=== PATIENT | female | born 1940 | race Caucasian/White ===

== ENCOUNTER → 2016-10-24 | Outpatient (REF) | payer MEDICARE ==
[2016-10-24 18:20] LABS: ANION GAP 9 MEQ/L (8-16); BLOOD UREA NITROGEN 17 MG/DL (7-18); CALCIUM LEVEL 8.8 MG/DL (8.8-10.2); CARBON DIOXIDE LEVEL 27 MEQ/L (21-32); CHLORIDE LEVEL 109 MEQ/L (98-107); CREATININE FOR GFR 0.77 MG/DL (0.55-1.02); GLOMERULAR FILTRATION RATE > 60.0 (>39); GLUCOSE, FASTING 66 MG/DL (83-110); POTASSIUM SERUM 4.2 MEQ/L (3.5-5.1); SODIUM LEVEL 145 MEQ/L (136-145); URIC ACID 3.8 MG/DL (2.6-6.0)
== END ==
LOC: M LAB REF 16:28
PROVIDERS: ATTEND Family Medicine
DX: C50.919 Malignant neoplasm of unspecified site of unspecified female breast (principal); M10.09 Idiopathic gout, multiple sites; F32.9 Major depressive disorder, single episode, unspecified

== ENCOUNTER → 2019-01-17 | Outpatient (CLI) | payer MEDICARE ==
[~2019-01-17] MED LIST: GABA-1171 PO; ISOVUE-370 76% 100ML VIAL (Q9967) As Ordered ONE; LEVO50TA5 PO; SIMV40TA2 PO; ZOLO100T PO
--- NOTE | 2019-01-17 17:25 | REP ---
CT LUMBAR SPINE WITHOUT CONTRAST: HISTORY: Spinal stenosis. A diffuse disc bulge with associated osteophyte formation is present at the L1-2 level. There is minimal compression of the thecal sac. The L1 nerves exit the neural foramina without compression. A diffuse disc bulge is present at the L2-3 level. There is hypertrophy of the ligamenta flava and posterior articulating facets. These findings produce minimal central canal stenosis. The L2 nerves exit the neural foramina without compression. A diffuse disc bulge is present at the L3-4 level. There is hypertrophy of the ligamenta flava and posterior articulating facets. These findings produce moderate central canal stenosis. The L3 nerves exit the neural foramina without compression. A diffuse disc is present at the L4-5 level. There is hypertrophy of the ligamenta flava and posterior articulating facets. These findings produce severe central canal stenosis. There is compression of the L4 nerves in the neural foramina. A diffuse disc bulge is present at the L5-S1 level. There is minimal compression of the thecal sac. There is hypertrophy of the posterior articulating facets. There is compression of the L5 nerves in the neural foramina. There is a destructive lesion in the left L5 lamina and spinous process. This is associated with a left posterior paraspinal soft-tissue component. The lumbar intervertebral discs are decreased in height. vacuum phenomenon is present at the L2-3, L4-5, and L5-S1 levels. These findings are consistent with disc degeneration. The vertebral bodies are normal in height. IMPRESSION: 1. Diffuse disc bulge with associated osteophyte formation at the L1-2 level with minimal thecal sac compression. 2. Minimal central canal stenosis at the L2-3 level secondary to disc bulge, ligamentous, and facet hypertrophy. 3. Moderate central canal stenosis at the L3-4 level secondary to disc bulge, ligamentous and facet hypertrophy. 4. Severe central canal stenosis at the L4-5 level secondary to disc bulge, ligamentous and facet hypertrophy. There is compression of the L4 nerves in the neural foramina. 5. Diffuse disc bulge at the L5-S1 level with minimal thecal sac compression. There is compression of the L5 nerves in the neural foramina. 6. There is a destructive lesion in the left L5 lamina and spinous process. This is associated with a left posterior soft tissue paraspinal component at the L4-5 level. The possibility of epidural extension can not be excluded. MR of the lumbar spine is recommended for further evaluation. Electronically Signed by Petros Crane MD 01/18/2019 07:55 A
== END ==
LOC: M RAD 15:09
PROVIDERS: ATTEND Orthopaedic Surgery
DX: M48.061 Spinal stenosis, lumbar region without neurogenic claudication (principal); M25.78 Osteophyte, vertebrae; M51.26 Other intervertebral disc displacement, lumbar region; M51.27 Other intervertebral disc displacement, lumbosacral region
CPT/HCPCS: 72132; Q9967

== ENCOUNTER → 2019-01-25 | Outpatient (CLI) | payer MEDICARE ==
[~2019-01-25] MED LIST changes: -ISOVUE-370 76% 100ML VIAL (Q9967) As Ordered ONE; +LIDOCAINE 1% MDV 20ML VIAL As Ordered ONE
[2019-01-25 13:08] LABS: BASO % 0.4 % (0.0-1.0); EOS # 0.1 10^3/uL (0.0-0.50); EOS % 1.5 % (0.0-3.0); HEMOGLOBIN 12.5 g/dl (12.0-15.5); LYMPH # 1.6 10^3/uL (1.5-4.5); LYMPH % 17.2 % (24.0-44.0); MEAN CORPUSCULAR HEMOGLOBIN 27.7 pg (27.0-33.0); MEAN CORPUSCULAR HGB CONC 32.1 g/dl (32.0-36.5); MEAN CORPUSCULAR VOLUME 86.3 fl (80.0-96.0); MONO # 0.5 10^3/uL (0.0-0.8); MONO % 5.9 % (0.0-5.0); NEUTROPHILS # 6.8 10^3/uL (1.8-7.7); NEUTROPHILS % 74.7 % (36.0-66.0); PLATELET COUNT, AUTOMATED 230 10^3/uL (150-450); RED BLOOD COUNT 4.52 10^6/uL (4.00-5.40); WHITE BLOOD COUNT 9.2 10^3/uL (4.0-10.0)
[2019-01-25 13:29] LABS: ALBUMIN 3.4 GM/DL (3.2-5.2); ALT/SGPT 29 U/L (12-78); BILIRUBIN,TOTAL 0.2 MG/DL (0.2-1.0); BLOOD UREA NITROGEN 17 MG/DL (7-18); C REACTIVE PROTEIN QUANTITATIV 1.23 MG/DL (0.00-0.30); CALCIUM LEVEL 8.8 MG/DL (8.8-10.2); CARBON DIOXIDE LEVEL 31 MEQ/L (21-32); CHLORIDE LEVEL 106 MEQ/L (98-107); CREATININE FOR GFR 0.67 MG/DL (0.55-1.30); GLOMERULAR FILTRATION RATE > 60.0 (>39); GLUCOSE, FASTING 80 MG/DL (70-100); POTASSIUM SERUM 4.2 MEQ/L (3.5-5.1); SODIUM LEVEL 140 MEQ/L (136-145); TOTAL PROTEIN 7.2 GM/DL (6.4-8.2)
[2019-01-25 13:42] LABS: ERYTHROCYTE SEDIMENTATION RATE 62 mm/hr (0-30)
[2019-01-25 14:55] VITALS: BP 135/76
--- NOTE | 2019-01-25 19:26 | REP ---
CT-guided L4/5 facet biopsy The procedure is performed by HARVEY Cooper, under the direct supervision of Dr. Sage. The risks and benefits of the procedure were explained to the patient and informed consent was obtained both orally and written. Directly prior to the start of the procedure, a formal timeout was done in the exam room. The L4/5 facet was localized using CT guidance. Skin was prepped and draped in the usual sterile fashion. 4 ml of 1% lidocaine was used as a local anesthetic. Using CT guidance a 19/20 gauge coaxial needle biopsy system was inserted and advanced into the area of interest. 4 core biopsy samples were obtained as well as approximately 0.5 ml of bloody fluid, and sent to the lab. The patient tolerated the procedure well and there were no immediate complications. After the appropriate monitored convalescence the patient was discharged home from the department. Reviewed by HARVEY Barros 01/25/2019 02:02 P Electronically Signed by Jamil Sage MD 01/25/2019 07:16 P
[2019-01-31 00:06] LABS: BLASTOMYCES ANTIBODY LEVEL Negative (Neg:<1:1); HISTOPLASMOSIS ANTIBODY Negative (Neg:<1:1)
== END ==
LOC: M IRPRO 11:36
PROVIDERS: ATTEND Orthopaedic Surgery
DX: M46.46 Discitis, unspecified, lumbar region (principal); M48.061 Spinal stenosis, lumbar region without neurogenic claudication

== ENCOUNTER → 2019-02-28 | Outpatient (REF) | payer MEDICARE ==
[~2019-02-28] MED LIST changes: -LIDOCAINE 1% MDV 20ML VIAL As Ordered ONE
== END ==
LOC: M SFHCPLAZ 11:38
PROVIDERS: ATTEND Internal Medicine Infectious Disease
DX: A49.01 Methicillin susceptible Staphylococcus aureus infection, unspecified site (principal); Z53.8 Procedure and treatment not carried out for other reasons

== ENCOUNTER → 2020-02-27 | Outpatient (CLI) | payer MEDICARE ==
[~2020-02-27] MED LIST changes: +ALLO100T; +ROSU20TA5; -SIMV40TA2 PO; +SIMV40TA20 PO; +VALA1TAB5
--- NOTE | 2020-03-15 07:52 | REPPI ---
LUMBOSACRAL SPINE SERIES CLINICAL: Back pain. TECHNIQUE: AP, lateral, bilateral oblique, and coned down views of the lumbosacral spine. FINDINGS: Straightening of normal lordosis is nonspecific. Advanced multilevel degenerative changes include osteophytosis, endplate sclerosis, facet arthropathy, and disc space narrowing. Findings most pronounced at L4-5 and L5- S1. No acute fracture/compression injury or subluxation appreciated. IMPRESSION: Advanced multilevel degenerative changes primarily involving L4-5 and L5-S1. MTDD
--- NOTE | 2020-03-15 07:53 | REPPI ---
CHEST X-RAY CLINICAL: Chest pain. Back pain. TECHNIQUE: PA and lateral. FINDINGS: Mediastinum and cardiac silhouette are normal. Lung cordoba clear. No consolidation, effusion, or pneumothorax. Skeletal structures demonstrate age- related osteopenia and degenerative changes. IMPRESSION: No acute cardiopulmonary process or focal consolidation. MTDD
== END ==
LOC: M PLAIMG 11:01
PROVIDERS: ATTEND Internal Medicine Infectious Disease
DX: M85.88 Other specified disorders of bone density and structure, other site (principal); M51.36 Other intervertebral disc degeneration, lumbar region; M51.37 Other intervertebral disc degeneration, lumbosacral region; R91.8 Other nonspecific abnormal finding of lung field; M00.9 Pyogenic arthritis, unspecified; R19.7 Diarrhea, unspecified
CPT/HCPCS: 71046; 72110; 87177; 87507; G0463

== ENCOUNTER → 2020-03-14 | Outpatient (CLI) | payer MEDICARE ==
--- NOTE | 2020-03-27 09:52 | REP ---
BILATERAL MAMMOGRAPHY WITH 3D TOMOSYNTHESIS, DIAGNOSTIC MAMMOGRAM LEFT BREAST AND LEFT BREAST ULTRASOUND HISTORY: Left breast cancer age 68 with radiation therapy. Benign biopsy at the surgery site 07/2018, results were a cyst. Current palpable lump left breast at site of surgery outer posterior left breast with pain. This is at the site of the prior biopsy 07/2018. The patient does not experience pain today. Interpretation is somewhat delayed waiting prior MR mammography exam 08/05/2018 from [place], [place]. TECHNIQUE: MLO and CC views of both breasts performed with 3D tomosynthesis. Additional compression views are performed of the posterior outer left breast at the site of the reported palpable abnormality near the site of prior surgery. FINDINGS: There is mild scattered fibroglandular tissue again seen bilaterally. Volpara breast density is B. There is stable postsurgical architectural distortion far posteriorly in the outer left breast, which appears stable. No new mass is seen mammographically and there are no suspicious clusters of microcalcifications. There are multiple metallic clips again seen in the left axillary region and in the posterolateral left axillary tail region, where there is postsurgical architectural distortion. Just anterior to that site, the palpable lump is marked on the skin. There is no new mass at that location. Real-time sonographic evaluation of the left breast is performed at the site of the reported palpable lump. There is no underlying cystic or solid mass. IMPRESSION: ACR 2 benign. Stable postsurgical changes posterolateral left breast. No new mass or clustered microcalcifications. There is no mammographic or sonographic abnormality seen at the site of the reported palpable lump in the outer posterior left breast. Clinical correlation and follow-up recommended. Recommend follow-up mammogram in one year. This mammogram was interpreted with the aid of an FDA approved computer-aided detection system. The patient states her last clinical breast exam was over one year ago. Patient letter: 2. CORBIN
== END ==
LOC: M WHC 08:04
PROVIDERS: ATTEND Family Medicine
DX: N63.20 Unspecified lump in the left breast, unspecified quadrant (principal); Z85.3 Personal history of malignant neoplasm of breast; Z92.3 Personal history of irradiation
CPT/HCPCS: 76642; 77066; G0279

== ENCOUNTER → 2020-04-06 | Outpatient (CLI) | payer MEDICARE | LOC: M LABSMTC 12:01 | PROVIDERS: ATTEND Anesthesiology | DX: Z01.812 Encounter for preprocedural laboratory examination (principal); Z20.828 Contact with and (suspected) exposure to other viral communicable diseases | CPT/HCPCS: C9803; U0003 ==

== ENCOUNTER 2020-04-11 06:41 | Day surgery (SDC) | payer MEDICARE ==
[~2020-04-11] VITALS: Ht 165.1 cm; Wt 75.3 kg
[2020-04-11] MEDS ORDERED: NS 1,000 ML IV ONE (07:00)
[2020-04-11] MEDS ORDERED: LIDOCAINE 2% 100MG/5ML SDV (FOR ANES.) As Ordered ONE (07:53)
[2020-04-11] MEDS ORDERED: propofoL 200 MG/20 ML VIAL As Ordered ONE (07:53)
--- NOTE | 2020-04-11 08:01 | ROOR ---
Patient Name: Zulema Mirza Procedure Date: 04/11/2020 7:27 AM Date of : 1940 Age: 80 Room: [facility] Gender: Female Note Status: Finalized Procedure: Total Colonoscopy to Cecum + Bx.+ Cold Snare Polypectomy Indications: Clinically significant diarrhea of unexplained origin Providers: Nick Hu MD Referring MD: Lidia Smyth DO Requesting Provider: Medicines: Monitored Anesthesia Care Complications: No immediate complications. Procedure: Pre-Anesthesia Assessment: - The heart rate, respiratory rate, oxygen saturations, blood pressure, adequacy of pulmonary ventilation, and response to care were monitored throughout the procedure. The Colonoscope was introduced through the anus and advanced to the cecum, identified by appendiceal orifice and ileocecal valve. The colonoscopy was performed without difficulty. The patient tolerated the procedure well. The quality of the bowel preparation was excellent. Findings: The perianal and digital rectal examinations were normal. Non-bleeding internal hemorrhoids were found during retroflexion. The hemorrhoids were small and Grade I (internal hemorrhoids that do not prolapse). Two sessile polyps were found in the hepatic flexure. The polyps were diminutive in size. These polyps were removed with a cold snare. Resection and retrieval were complete. Biopsies for histology were taken with a cold forceps from the ascending colon, transverse colon, descending colon and rectosigmoid colon for evaluation of microscopic colitis. The exam was otherwise without abnormality on direct and retroflexion views. Impression: - Non-bleeding internal hemorrhoids. - Two diminutive polyps at the hepatic flexure, removed with a cold snare. Resected and retrieved. - The examination was otherwise normal on direct and retroflexion views. - Biopsies were taken with a cold forceps from the ascending colon, transverse colon, descending colon and rectosigmoid colon for evaluation of microscopic colitis. - The exam was otherwise normal to the cecum. Recommendation: - Patient has a contact number available for emergencies. The signs and symptoms of potential delayed complications were discussed with the patient. Return to normal activities tomorrow. Written discharge instructions were provided to the patient. - High fiber diet. - Discharge patient to home. - Continue present medications. - Await pathology results. - Telephone GI clinic for pathology results in 1 week. - Repeat colonoscopy for surveillance based on pathology results. - Return to referring physician. - The findings and recommendations were discussed with the patient. Nick Hu MD Nick Hu MD 04/11/2020 8:00:18 AM Electronically signed by Nick Hu MD Number of Addenda: 0 Note Initiated On: 04/11/2020 7:27 AM Estimated Blood Loss: Estimated blood loss: none.
[2020-04-11 08:33] VITALS: BP 125/65
== END 2020-04-11 08:35 | disposition home or self-care (01) ==
LOC: M OPP 06:41
PROVIDERS: ATTEND Internal Medicine Gastroenterology
DX: D12.3 Benign neoplasm of transverse colon (principal); K64.0 First degree hemorrhoids; K52.839 Microscopic colitis, unspecified; R19.7 Diarrhea, unspecified; Z79.899 Other long term (current) drug therapy; Z88.0 Allergy status to penicillin; Z88.2 Allergy status to sulfonamides; Z87.891 Personal history of nicotine dependence; Z85.3 Personal history of malignant neoplasm of breast; Z92.3 Personal history of irradiation

== ENCOUNTER 2020-11-04 09:11 | Emergency (ER) | payer MEDICARE ==
[~2020-11-04] VITALS: Ht 165.1 cm; Wt 77.6 kg
[2020-11-04] MEDS ORDERED: PRED10TA2 PO (09:28)
[2020-11-04] MEDS ORDERED: AZIT-12 PO (09:28)
[2020-11-04 11:02] LABS: BASO % 0.2 % (0.0-1.0); EOS # 0.1 10^3/uL (0.0-0.5); EOS % 0.7 % (0.0-3.0); HEMATOCRIT 44.5 % (36.0-47.0); HEMOGLOBIN 14.7 g/dl (12.0-15.5); LYMPH # 1.4 10^3/uL (1.5-5.0); MEAN CORPUSCULAR HEMOGLOBIN 30.6 pg (27.0-33.0); MEAN CORPUSCULAR VOLUME 92.7 fl (80.0-96.0); MONO # 0.6 10^3/uL (0.0-0.8); MONO % 5.6 % (2.0-8.0); NEUTROPHILS # 8.1 10^3/uL (1.5-8.5); NEUTROPHILS % 79.3 % (36.0-66.0); PLATELET COUNT, AUTOMATED 160 10^3/uL (150-450); WHITE BLOOD COUNT 10.3 10^3/uL (4.0-10.0)
[2020-11-04 11:33] LABS: ERYTHROCYTE SEDIMENTATION RATE 11 mm/hr (0-30)
[2020-11-04] MEDS ORDERED: KETOROLAC 30 MG/ML 1ML VIAL IV ONE (11:50)
[2020-11-04] MEDS ORDERED: NS 1,000 ML IV ONE (11:50)
[2020-11-04] MEDS ORDERED: ISOVUE-370 76% 100ML VIAL As Ordered ONE (12:01)
--- NOTE | 2020-11-04 12:37 | REP ---
INDICATION: right hip-recent dental work, joint pain r/o infection. COMPARISON: Comparison CT study of the lumbar spine January 17, 2019.. TECHNIQUE: Helical scanning is acquired and 3 mm axial images are re-formatted. Coronal and sagittal MPR images of the pelvis are included. 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 There are degenerative spondylosis changes in the lumbar spine. On bone window settings, there is discogenic spurring along the left lateral contour of the L5 3 4 and L4-5 disc levels. Diffuse disc again experience seen anterior aspect of L5-S1. No bony destructive lesion is seen in the pelvis or sacrum. There is chronic sclerosis along the right SI joint and mild SI joint spurring is seen bilaterally. These findings are unchanged. Osteoarthritic facet hypertrophy is noted in the lower lumbar spine also unchanged. There is mild bilateral femoroacetabular spurring. There is some chondrocalcinosis at the right hip. Mild spurring is seen at the symphysis pubis. Presacral soft tissues are unremarkable. No uterine or ovarian abnormality is seen. The urinary bladder is unremarkable. No pelvic mass or adenopathy is seen. No perineal mass is seen. No abdominal wall defect is observed. A normal appendix is noted in the right lower quadrant. IMPRESSION: Degenerative spondylosis changes in the lumbar spine. Old sclerosis and spurring the SI joints. Mild osteoarthritis of the hips bilaterally. No acute abnormality. <Electronically signed by Sundar Sage > 11/04/20 [id number]
--- NOTE | 2020-11-04 13:04 | REP ---
INDICATION: with contrast--hx of spinal abscess. COMPARISON: Comparison lumbar spine CT study is from January 17, 2019.. TECHNIQUE: 100 cc of Isovue 370 is administered. Helical scanning is acquired and 4 mm axial images re-formatted. Coronal and sagittal MPR images are included. FINDINGS: Lumbar vertebral body heights are preserved. Alignment is normal. There is diffuse degenerative disc disease. No fracture or collapse is seen. There is no evidence of spondylolysis or spondylolisthesis. There is sclerosis on the iliac side of the sacroiliac joints bilaterally, right more so than left unchanged from the January 17, 2019 study. SI joints are intact. No evidence of erosive change or adjacent soft tissue edema. There is no CT evidence to suggest epidural or perispinal abscess. There is diffuse degenerative disc disease. At T12-L1 there is anterior discogenic spurring and central disc bulging. At L1-L2, axial and sagittal images demonstrate diffuse disc bulging. No foraminal narrowing is seen. At L2-L3, there is a vacuum phenomenon in the degenerated disc. There is central canal stenosis and at the L2-3 level due to diffuse disc bulging, developmentally short pedicles, and mild ligamentum flavum hypertrophy. This is unchanged. At L3-4, there is a diffuse disc bulging noted. This appears somewhat more prominent than on the prior study. Central canal stenosis is seen due to diffuse disc bulging, developmentally short pedicles and mild ligamentum flavum hypertrophy. No bony foraminal encroachment is seen. At L4-5, there is mild central canal stenosis due to diffuse disc bulging and some posterior osteophytic ridging. Ligamentum flavum and mild facet hypertrophy contribute to the central canal stenosis at L4-5 as well. The central canal stenosis at L4-5 is less prominent than it was at the time of the January 17, 2019 study. The left L4-5 facet inflammatory changes present at January 2019 have resolved. At L5-S1 there is vacuum phenomenon in the generated disc. There is osteoarthritic facet hypertrophy and mild ligamentum flavum hypertrophy. No bony foraminal narrowing. IMPRESSION: There is no evidence of epidural or perispinal abscess. Degenerative spondylosis with multilevel spinal stenosis L2-3 through L4-5. Improvement is noted at L4-5 relative to the January 17, 2019 prior scan. <Electronically signed by Sundar Sage > 11/04/20 1300
[2020-11-04 13:43] VITALS: BP 144/60
== END 2020-11-04 13:45 | disposition home or self-care (01) ==
LOC: M ED 09:11
DX: M47.816 Spondylosis without myelopathy or radiculopathy, lumbar region (principal); M48.061 Spinal stenosis, lumbar region without neurogenic claudication; M51.25 Other intervertebral disc displacement, thoracolumbar region; M51.26 Other intervertebral disc displacement, lumbar region; M16.0 Bilateral primary osteoarthritis of hip; Z86.14 Personal history of Methicillin resistant Staphylococcus aureus infection; Z88.0 Allergy status to penicillin; Z88.2 Allergy status to sulfonamides; Z79.899 Other long term (current) drug therapy
CPT/HCPCS: 36415; 72132; 72193; 80047; 83605; 85025; 85652; 86140; 87040; 96361; 96374; 99284; J1885; Q9967

== ENCOUNTER → 2021-03-18 | Outpatient (CLI) | payer MEDICARE ==
[~2021-03-18] MED LIST changes: +AZIT-12 PO; +PRED10TA2 PO
--- NOTE | 2021-03-18 09:18 | REPMRS ---
Patient History The patient states she had a clinical breast exam in February 2021. Patient is postmenopausal, has history of breast cancer at age 68, and had previous chest radiation therapy at age 68. Family history of breast cancer at age 70 in sister, breast cancer at age 65 in maternal half sister. Patient states no breast complaints today. Patient has signed MRS History Sheet. Digital Woman Screen Mammo: March 18, 2021 - Exam #: [id number] Bilateral CC and MLO view(s) were taken. Technologist: Jojo Keith Technologist Prior study comparison: March 14, 2020, diagnostic bilateral mammo performed at [facility] and [facility]. August 05, 2018, left breast diagnostic unilateral mammo, performed at Outside Facility. FINDINGS: There are scattered fibroglandular densities. The Volpara volumetric breast density category is:B. There are stable post treatment changes in the left breast. There has been no change in the appearance of the mammogram from the prior studies. There is a mild amount of scattered fibroglandular density which is fairly symmetric. There is no interval development of dominant mass, architectural distortion, or grouped microcalcification suggestive of malignancy. 3-D tomosynthesis shows no additional findings. Assessment: BI-RADS/ACR category 2 mammogram. Benign Findings. Recommendation Routine screening mammogram of both breasts in 1 year (for women over age 40). This mammogram was interpreted with the aid of an FDA-approved computer-aided dectection system. Electronically Signed By: Sundar Sage MD 03/18/21 0917
== END ==
LOC: M WHC 08:34
PROVIDERS: ATTEND Family Medicine
DX: Z12.31 Encounter for screening mammogram for malignant neoplasm of breast (principal)

== ENCOUNTER → 2021-11-28 | Outpatient (REF) | payer MEDICARE, OTHER, SELFPAY | LOC: M SFHCCLAY 15:52 | PROVIDERS: ATTEND Family Medicine | DX: R30.0 Dysuria (principal); R19.5 Other fecal abnormalities ==

== ENCOUNTER → 2021-11-29 | Outpatient (REF) | payer OTHER | LOC: M SFHCCLAY 09:27 | PROVIDERS: ATTEND Family Medicine | DX: Z53.9 Procedure and treatment not carried out, unspecified reason (principal) ==

== ENCOUNTER → 2022-01-21 | Outpatient (REF) | payer MEDICARE ==
[2022-01-21 11:20] LABS: HEMATOCRIT 44.6 % (36.0-47.0); HEMOGLOBIN 15.1 g/dl (12.0-15.5); MEAN CORPUSCULAR HEMOGLOBIN 30.6 pg (27.0-33.0); MEAN CORPUSCULAR HGB CONC 33.9 g/dl (32.0-36.5); MEAN CORPUSCULAR VOLUME 90.5 fl (80.0-96.0); PLATELET COUNT, AUTOMATED 165 10^3/uL (150-450); RED BLOOD COUNT 4.93 10^6/uL (4.00-5.40); WHITE BLOOD COUNT 6.8 10^3/uL (4.0-10.0)
[2022-01-21 12:06] LABS: ALBUMIN 3.8 GM/DL (3.2-5.2); ALT/SGPT 32 U/L (12-78); BILIRUBIN,TOTAL 0.3 MG/DL (0.2-1.0); BLOOD UREA NITROGEN 20 MG/DL (7-18); CARBON DIOXIDE LEVEL 28 MEQ/L (21-32); CHLORIDE LEVEL 110 MEQ/L (98-107); CREATININE FOR GFR 0.83 MG/DL (0.55-1.30); FREE T4 0.73 NG/DL (0.76-1.46); GLOMERULAR FILTRATION RATE > 60.0 (>39); GLUCOSE, FASTING 89 MG/DL (70-100); SODIUM LEVEL 145 MEQ/L (136-145); TOTAL PROTEIN 7.1 GM/DL (6.4-8.2)
== END ==
LOC: M SFHCCLAY 08:00
PROVIDERS: ATTEND Family Medicine
DX: M35.1 Other overlap syndromes (principal); E03.9 Hypothyroidism, unspecified; Z12.31 Encounter for screening mammogram for malignant neoplasm of breast

== ENCOUNTER 2022-02-09 20:35 | Emergency (ER) | payer MEDICARE ==
[~2022-02-09] VITALS: Ht 167.6 cm; Wt 72.7 kg
[~2022-02-09 20:35] MED LIST changes: -ALLO100T; +ALLO100T PO
[2022-02-09 22:05] LABS: BASO % 0.1 % (0.0-1.0); HEMATOCRIT 40.1 % (36.0-47.0); HEMOGLOBIN 13.7 g/dl (12.0-15.5); LYMPH # 0.5 10^3/uL (1.5-5.0); LYMPH % 3.6 % (24.0-44.0); MEAN CORPUSCULAR HEMOGLOBIN 30.2 pg (27.0-33.0); MEAN CORPUSCULAR HGB CONC 34.2 g/dl (32.0-36.5); MEAN CORPUSCULAR VOLUME 88.3 fl (80.0-96.0); MONO # 0.7 10^3/uL (0.0-0.8); MONO % 5.6 % (2.0-8.0); NEUTROPHILS # 11.5 10^3/uL (1.5-8.5); NEUTROPHILS % 90.3 % (36.0-66.0); PLATELET COUNT, AUTOMATED 104 10^3/uL (150-450); RED BLOOD COUNT 4.54 10^6/uL (4.00-5.40); WHITE BLOOD COUNT 12.8 10^3/uL (4.0-10.0)
[2022-02-09] MEDS ORDERED: NS 1,000 ML IV ONE (22:10)
[2022-02-09] MEDS ORDERED: ACETAMINOPHEN 500 MG TAB PO ONE (22:10)
[2022-02-09] MEDS ORDERED: ONDANSETRON 4MG 2ML VIAL IV ONE (22:10)
[2022-02-09 22:18] LABS: D-DIMER QUANT 1490.36 ng/ml (<500)
[2022-02-09 22:42] LABS: ALBUMIN 3.6 GM/DL (3.2-5.2); BILIRUBIN,DIRECT 0.2 MG/DL (0.0-0.2); BILIRUBIN,TOTAL 0.7 MG/DL (0.2-1.0); FREE THYROXINE INDEX 3.5 % (1.3-4.8); THYROID STIMULATING HORMONE 1.65 uIU/ML (0.358-3.740); THYROXINE (T4) 10.3 UG/DL (4.5-12.0); TOTAL PROTEIN 7.1 GM/DL (6.4-8.2)
[2022-02-09 23:05] LABS: PROTHROMBIN TIME 13.6 SECONDS (12.7-14.5)
[2022-02-09 23:06] LABS: PARTIAL THROMBOPLASTIN TIME 44.1 SECONDS (25.9-37.0)
[2022-02-10 00:35] LABS: CK-MB VALUE MASS < 1.0 NG/ML (<3.6); CPK CREATINE PHOSPHOKINASE 46 U/L (26-192); MB/CK RELATIVE INDEX 2.17 (< OR =4)
[2022-02-10] MEDS ORDERED: traMADol 50 MG TAB PO ONE (00:35)
[2022-02-10] MEDS ORDERED: POTASSIUM CHLORIDE 10MEQ SR TABLET PO ONE (00:35)
[2022-02-10] MEDS ORDERED: ISOVUE-370 76% 100ML VIAL As Ordered ONE (00:40)
[2022-02-10 01:55] LABS: CK-MB VALUE MASS < 1.0 NG/ML (<3.6); CPK CREATINE PHOSPHOKINASE 50 U/L (26-192)
[2022-02-10] MEDS ORDERED: ONDA4TAB6 PO (02:04)
[2022-02-10] MEDS ORDERED: TRAM50TA2 PO (02:04)
[2022-02-10 02:10] VITALS: BP 111/83
[2022-02-10] MEDS ORDERED: ONDANSETRON 4MG ORAL DISINTEGRATING TAB PO ONE (02:10)
[2022-02-11] MEDS ORDERED: GABA-1171 PO (10:24)
[2022-02-11] MEDS ORDERED: ONDA-83 PO (18:53)
[2022-02-11] MEDS ORDERED: MACR100C43 PO (18:53)
== END 2022-02-10 02:18 | disposition home or self-care (01) ==
LOC: M ED 20:35
DX: U07.1 COVID-19 (principal); R11.2 Nausea with vomiting, unspecified; R19.7 Diarrhea, unspecified; E87.6 Hypokalemia; E03.9 Hypothyroidism, unspecified; K44.9 Diaphragmatic hernia without obstruction or gangrene; G62.9 Polyneuropathy, unspecified; Z85.3 Personal history of malignant neoplasm of breast; F17.200 Nicotine dependence, unspecified, uncomplicated; Z88.0 Allergy status to penicillin; Z88.2 Allergy status to sulfonamides; Z79.890 Hormone replacement therapy; Z79.899 Other long term (current) drug therapy
CPT/HCPCS: 70450; 71275; 73502; 80047; 80076; 82550; 82553; 83605; 83690; 84436; 84443; 84479; 84484; 85025; 85379; 85610; 85730; 87040; 87077; 87186; 93005; 96361; 96374; 99284; J2405; Q9967

== ENCOUNTER 2022-02-11 10:15 | Emergency (ER) | payer MEDICARE ==
[~2022-02-11] VITALS: Ht 167.6 cm; Wt 72.7 kg
[~2022-02-11 10:15] MED LIST changes: +ONDA4TAB6 PO; +TRAM50TA2 PO
[2022-02-11] MEDS ORDERED: GABA-1171 PO (10:24)
[2022-02-11 11:47] LABS: BASO % 0.1 % (0.0-1.0); HEMATOCRIT 35.5 % (36.0-47.0); HEMOGLOBIN 12.1 g/dl (12.0-15.5); LYMPH # 0.3 10^3/uL (1.5-5.0); LYMPH % 2.7 % (24.0-44.0); MEAN CORPUSCULAR HEMOGLOBIN 30.2 pg (27.0-33.0); MEAN CORPUSCULAR HGB CONC 34.1 g/dl (32.0-36.5); MEAN CORPUSCULAR VOLUME 88.5 fl (80.0-96.0); MONO # 0.5 10^3/uL (0.0-0.8); MONO % 4.2 % (2.0-8.0); NEUTROPHILS # 10.1 10^3/uL (1.5-8.5); NEUTROPHILS % 92.3 % (36.0-66.0); PLATELET COUNT, AUTOMATED 114 10^3/uL (150-450); RED BLOOD COUNT 4.01 10^6/uL (4.00-5.40); WHITE BLOOD COUNT 10.9 10^3/uL (4.0-10.0)
[2022-02-11 12:20] LABS: BLOOD UREA NITROGEN 16 MG/DL (7-18); CALCIUM LEVEL 8.2 MG/DL (8.8-10.2); CARBON DIOXIDE LEVEL 25 MEQ/L (21-32); CHLORIDE LEVEL 100 MEQ/L (98-107); GLOMERULAR FILTRATION RATE > 60.0 (>32); GLUCOSE, FASTING 107 MG/DL (70-100); POTASSIUM SERUM 3.7 MEQ/L (3.5-5.1); SODIUM LEVEL 132 MEQ/L (136-145)
[2022-02-11] MEDS ORDERED: ONDANSETRON 4MG 2ML VIAL IV ONE (15:50)
[2022-02-11] MEDS ORDERED: FAMOTIDINE 20MG/2ML VIAL IVP ONE (15:50)
[2022-02-11] MEDS ORDERED: KETOROLAC 30 MG/ML 1ML VIAL IV ONE (15:50)
[2022-02-11] MEDS ORDERED: NS 1,000 ML IV ONE (15:50)
[2022-02-11 17:03] LABS: ALBUMIN 2.8 GM/DL (3.2-5.2); ALT/SGPT 34 U/L (12-78); BILIRUBIN,DIRECT 0.4 MG/DL (0.0-0.2); BILIRUBIN,TOTAL 0.8 MG/DL (0.2-1.0); LIPASE 115 U/L (73-393); TOTAL PROTEIN 6.5 GM/DL (6.4-8.2)
[2022-02-11 17:03] LABS: CK-MB VALUE MASS 4.2 NG/ML (<3.6); MB/CK RELATIVE INDEX 2.53 (< OR =4)
[2022-02-11 18:27] VITALS: BP 139/71
[2022-02-11 18:43] LABS: BACTERIA, URINE LARGE AMOUNT; HYALINE CAST, URINE NONE SEEN /lpf (0-1); RBC, URINE NONE SEEN /hpf (0-3); SQUAMOUS EPITHELIAL CELL URINE SMALL AMOUNT /hpf (SMALL AMT)
[2022-02-11] MEDS ORDERED: MACR100C43 PO (18:53)
[2022-02-11] MEDS ORDERED: ONDA-83 PO (18:53)
== END 2022-02-11 19:04 | disposition home or self-care (01) ==
LOC: M ED 10:15
DX: B34.9 Viral infection, unspecified (principal); N39.0 Urinary tract infection, site not specified; R11.2 Nausea with vomiting, unspecified; I51.9 Heart disease, unspecified; E78.5 Hyperlipidemia, unspecified; M81.0 Age-related osteoporosis without current pathological fracture; M54.50 Low back pain, unspecified; Z88.0 Allergy status to penicillin; Z88.2 Allergy status to sulfonamides; Z85.3 Personal history of malignant neoplasm of breast; Z92.3 Personal history of irradiation; Z79.899 Other long term (current) drug therapy; Z79.83 Long term (current) use of bisphosphonates
CPT/HCPCS: 74021; 80048; 80076; 81000; 81015; 82550; 82553; 83690; 84484; 85025; 87088; 87186; 96361; 96374; 99284; J1885; J2405

== ENCOUNTER 2022-02-14 15:12 | Inpatient (IN) | payer MEDICARE ==
[~2022-02-14] VITALS: Ht 167.6 cm; Wt 82.3 kg
[~2022-02-14 15:12] MED LIST changes: +MACR100C43 PO; +ONDA-83 PO
[2022-02-14 16:07] LABS: HEMATOCRIT 31.5 % (36.0-47.0); MEAN CORPUSCULAR HEMOGLOBIN 30.7 pg (27.0-33.0); MEAN CORPUSCULAR HGB CONC 34.9 g/dl (32.0-36.5); PLATELET COUNT, AUTOMATED 182 10^3/uL (150-450); RED BLOOD COUNT 3.58 10^6/uL (4.00-5.40); WHITE BLOOD COUNT 13.3 10^3/uL (4.0-10.0)
[2022-02-14 16:20] LABS: INR 1.26; PROTHROMBIN TIME 16.2 SECONDS (12.7-14.5)
[2022-02-14 16:21] LABS: PARTIAL THROMBOPLASTIN TIME 39.2 SECONDS (25.9-37.0)
[2022-02-14 16:28] LABS: EOSINOPHILS 1 % (0-3); LYMPHOCYTES 8 % (16-44); MONOCYTES 2 % (0-5); NEUTROPHILS 86 % (28-66); PLATELET ESTIMATE NORMAL (NORMAL)
[2022-02-14] MEDS ORDERED: MORPHINE 4 MG/ML 1ML VIAL/SYRINGE IV ONE ×2 (16:35→22:30)
[2022-02-14 16:48] LABS: CK-MB VALUE MASS 5.5 NG/ML (<3.6); MB/CK RELATIVE INDEX 1.63 (< OR =4)
[2022-02-14 16:54] LABS: ALBUMIN 2.1 GM/DL (3.2-5.2); ALT/SGPT 79 U/L (12-78); AMYLASE 45 U/L (25-115); BILIRUBIN,DIRECT 0.5 MG/DL (0.0-0.2); BILIRUBIN,TOTAL 0.8 MG/DL (0.2-1.0); BLOOD UREA NITROGEN 13 MG/DL (7-18); CALCIUM LEVEL 8.5 MG/DL (8.8-10.2); CARBON DIOXIDE LEVEL 23 MEQ/L (21-32); CHLORIDE LEVEL 96 MEQ/L (98-107); CREATININE FOR GFR 0.45 MG/DL (0.55-1.30); GLOMERULAR FILTRATION RATE > 60.0 (>32); GLUCOSE, FASTING 84 MG/DL (70-100); POTASSIUM SERUM 3.2 MEQ/L (3.5-5.1); SODIUM LEVEL 130 MEQ/L (136-145); TOTAL PROTEIN 5.5 GM/DL (6.4-8.2)
[2022-02-14] MEDS ORDERED: ISOVUE-370 76% 100ML VIAL As Ordered ONE (16:59)
[2022-02-14] MEDS ORDERED: NS 1,000 ML IV ONE (17:25)
[2022-02-14] MEDS ORDERED: VANCOMYCIN HCL 1,000 MG in IV FLUID PLACE HOLDER 1 EA IV ONE (17:25)
[2022-02-14] MEDS ORDERED: POTASSIUM CHLORIDE 10MEQ SR TABLET PO ONE (17:25)
[2022-02-14] MEDS ORDERED: VANCOMYCIN HCL 750 MG, VIAL MATE ADAPTER 1 EACH in D5W 250 ML IV ONE ×2 (18:00→19:00)
[2022-02-14] MEDS ORDERED: NS 1,000 ML IV SCH (20:15)
[2022-02-14 20:45] LABS: APPEARANCE, URINE MANUAL CLEAR (CLEAR); COLOR, URINE MANUAL YELLOW (YELLOW)
[2022-02-14 20:46] LABS: BILIRUBIN, URINE MANUAL NEGATIVE (NEGATIVE); BLOOD URINE MANUAL POSITIVE (NEGATIVE); GLUCOSE, URINE (UA) MANUAL NEGATIVE (NEGATIVE); KETONE, URINE MANUAL 2+ mg/dL (NEGATIVE); LEUKOCYTE ESTERASE, URINE MAN NEGATIVE (NEGATIVE); NITRITE, URINE MANUAL NEGATIVE (NEGATIVE); PH,URINE MAN 5.5 UNITS (5.0 - 7.0); PROTEIN, URINE MANUAL 2+ mg/dL (NEGATIVE); SPECIFIC GRAVITY,URINE MANUAL 1.015 (1.002-1.035); UROBILINOGEN, URINE MANUAL NORMAL (NORMAL)
[2022-02-14 21:00] LABS: AMORPHOUS SEDIMENT, URINE SMALL AMOUNT (NEGATIVE); BACTERIA, URINE NONE SEEN; HYALINE CAST, URINE NONE SEEN /lpf (0-1); MUCUS, URINE LARGE AMOUNT (NEGATIVE); RBC, URINE 20-30 /hpf (0-3); SQUAMOUS EPITHELIAL CELL URINE SMALL AMOUNT /hpf (SMALL AMT); TRANSITIONAL EPI CELLS, URINE SMALL AMOUNT /hpf
[2022-02-14] MEDS: NS 1,000 ML IV SCH (22:40)
[2022-02-15] MEDS ORDERED: guaiFENesin DM LIQ 10ML UD PO PRN (00:25)
[2022-02-15] MEDS ORDERED: ONDANSETRON 4MG 2ML VIAL IV PRN (00:25)
[2022-02-15] MEDS ORDERED: PERCOCET 5MG/325MG TAB PO PRN (00:25)
[2022-02-15] MEDS ORDERED: POTASSIUM CHLORIDE 10MEQ SR TABLET PO ONE (00:25)
[2022-02-15] MEDS ORDERED: VANCOMYCIN HCL 750 MG, VIAL MATE ADAPTER 1 EACH in D5W 250 ML IV ONE ×2 (01:00→02:00)
[2022-02-15] MEDS ORDERED: HYDR200T3 PO (01:13)
[2022-02-15] MEDS ORDERED: PRED5TA PO (01:13)
[2022-02-15] MEDS ORDERED: ZOLO100T PO (01:13)
[2022-02-15] MEDS ORDERED: HOME MED LIST COMPLETE! XX SCH (01:15)
[2022-02-15] MEDS: cefTRIAXone SOD 2 GM in D5W MINI-BAG PLUS 50 ML IV SCH (01:18)
[2022-02-15] MEDS: KCL 20MEQ in NS 1000ML 1,000 ML IV SCH ×2 (01:18→15:41)
[2022-02-15] MEDS ORDERED: REMDESIVIR 200 MG in NS 250 ML IV ONE (02:00)
[2022-02-15] MEDS: NS 1,000 ML IV SCH (02:02)
[2022-02-15] MEDS ORDERED: SODIUM CHLORIDE 0.9% INJ 10 ML SYR IV ONE (04:00)
[2022-02-15 04:46] VITALS: BP 133/59
[2022-02-15] MEDS: LEVOTHYROXINE 50MCG TABLET (0.05MG) PO SCH (05:03)
[2022-02-15 06:39] LABS: HEMATOCRIT 29.8 % (36.0-47.0); HEMOGLOBIN 10.2 g/dl (12.0-15.5); MEAN CORPUSCULAR HEMOGLOBIN 30.2 pg (27.0-33.0); MEAN CORPUSCULAR HGB CONC 34.2 g/dl (32.0-36.5); MEAN CORPUSCULAR VOLUME 88.2 fl (80.0-96.0); PLATELET COUNT, AUTOMATED 172 10^3/uL (150-450); RED BLOOD COUNT 3.38 10^6/uL (4.00-5.40); WHITE BLOOD COUNT 11.8 10^3/uL (4.0-10.0)
[2022-02-15 07:13] LABS: BLOOD UREA NITROGEN 12 MG/DL (7-18); CALCIUM LEVEL 7.9 MG/DL (8.8-10.2); CARBON DIOXIDE LEVEL 24 MEQ/L (21-32); CHLORIDE LEVEL 103 MEQ/L (98-107); CREATININE FOR GFR 0.34 MG/DL (0.55-1.30); GLOMERULAR FILTRATION RATE > 60.0 (>32); GLUCOSE, FASTING 81 MG/DL (70-100); POTASSIUM SERUM 3.1 MEQ/L (3.5-5.1); SODIUM LEVEL 135 MEQ/L (136-145)
[2022-02-15 08:00] VITALS: BP 152/70
[2022-02-15] MEDS: guaiFENesin ER 600 MG TAB PO SCH ×2 (08:12→21:14)
[2022-02-15] MEDS: DOCUSATE SODIUM 100MG CAPSULE PO SCH ×2 (08:12→21:13)
[2022-02-15] MEDS: SERTRALINE 100 MG TAB PO SCH (08:12)
[2022-02-15] MEDS: HYDROXYCHLOROQUINE 200 MG TAB PO SCH (08:12)
[2022-02-15] MEDS: PERCOCET 5MG/325MG TAB PO PRN ×2 (08:14→18:12)
[2022-02-15] MEDS: GABAPENTIN 100 MG CAP PO SCH ×2 (08:14→21:14)
[2022-02-15] MEDS: ENOXAPARIN 40MG/0.4ML SYRINGE (J1650 PER 10MG) SC SCH (08:14)
[2022-02-15] MEDS: POTASSIUM CHLORIDE 10MEQ SR TABLET PO SCH ×2 (08:14→21:13)
[2022-02-15] MEDS: allopurinoL 100 MG TAB PO SCH (08:19)
[2022-02-15] MEDS ORDERED: VANCOMYCIN HCL 1,000 MG, VIAL MATE ADAPTER 1 EACH in NS 250 ML IV SCH ×2 (12:00→23:00)
[2022-02-15 13:49] VITALS: BP 122/59
[2022-02-15 19:30] VITALS: BP 128/60
[2022-02-15] MEDS: REMDESIVIR 100 MG in NS 250 ML IV SCH (22:43)
[2022-02-16] MEDS ORDERED: RAMELTEON 8 MG TAB (ROZEREM) PO ONE (00:15)
[2022-02-16] MEDS: SODIUM CHLORIDE 0.9% INJ 10 ML SYR IV SCH (00:21)
[2022-02-16] MEDS: cefTRIAXone SOD 2 GM in D5W MINI-BAG PLUS 50 ML IV SCH (01:36)
[2022-02-16 04:23] VITALS: BP 147/68
[2022-02-16] MEDS: LEVOTHYROXINE 50MCG TABLET (0.05MG) PO SCH (06:20)
[2022-02-16 08:00] VITALS: BP 130/64
[2022-02-16] MEDS: POTASSIUM CHLORIDE 10MEQ SR TABLET PO SCH ×2 (08:38→21:40)
[2022-02-16] MEDS: DOCUSATE SODIUM 100MG CAPSULE PO SCH ×2 (08:39→21:00)
[2022-02-16] MEDS: ENOXAPARIN 40MG/0.4ML SYRINGE (J1650 PER 10MG) SC SCH (08:39)
[2022-02-16] MEDS: HYDROXYCHLOROQUINE 200 MG TAB PO SCH (08:39)
[2022-02-16] MEDS: SERTRALINE 100 MG TAB PO SCH (08:39)
[2022-02-16] MEDS: GABAPENTIN 100 MG CAP PO SCH ×2 (08:39→21:39)
[2022-02-16] MEDS: guaiFENesin ER 600 MG TAB PO SCH ×2 (08:39→21:40)
[2022-02-16] MEDS: allopurinoL 100 MG TAB PO SCH (08:46)
[2022-02-16] MEDS: ANALGESIC BALM CRM 3OZ TOP SCH ×4 (09:00→21:09)
[2022-02-16 10:38] LABS: HEMATOCRIT 32.7 % (36.0-47.0); HEMOGLOBIN 11.3 g/dl (12.0-15.5); MEAN CORPUSCULAR HEMOGLOBIN 30.7 pg (27.0-33.0); MEAN CORPUSCULAR HGB CONC 34.6 g/dl (32.0-36.5); MEAN CORPUSCULAR VOLUME 88.9 fl (80.0-96.0); PLATELET COUNT, AUTOMATED 224 10^3/uL (150-450); RED BLOOD COUNT 3.68 10^6/uL (4.00-5.40); WHITE BLOOD COUNT 14.2 10^3/uL (4.0-10.0)
[2022-02-16] MEDS: LIDOCAINE 5% (LIDODERM) PATCH TD SCH (11:08)
[2022-02-16 11:21] LABS: ALBUMIN 1.7 GM/DL (3.2-5.2); ALT/SGPT 171 U/L (12-78); BILIRUBIN,DIRECT 0.3 MG/DL (0.0-0.2); BILIRUBIN,TOTAL 0.5 MG/DL (0.2-1.0); BLOOD UREA NITROGEN 8 MG/DL (7-18); CALCIUM LEVEL 7.9 MG/DL (8.8-10.2); CARBON DIOXIDE LEVEL 25 MEQ/L (21-32); CHLORIDE LEVEL 103 MEQ/L (98-107); CREATININE FOR GFR 0.33 MG/DL (0.55-1.30); GLOMERULAR FILTRATION RATE > 60.0 (>32); GLUCOSE, FASTING 91 MG/DL (70-100); MAGNESIUM LEVEL 1.8 MG/DL (1.8-2.4); POTASSIUM SERUM 3.5 MEQ/L (3.5-5.1); SODIUM LEVEL 136 MEQ/L (136-145)
[2022-02-16] MEDS: VANCOMYCIN HCL 750 MG, VIAL MATE ADAPTER 1 EACH in D5W 250 ML IV SCH (11:48)
[2022-02-16 12:00] VITALS: BP 130/60
[2022-02-16] MEDS: VANCOMYCIN HCL 500 MG in D5W MINI-BAG PLUS 100 ML IV SCH (13:07)
[2022-02-16] MEDS: **NOTE PATIENT COMMENT** MISC XX SCH (21:10)
[2022-02-16 21:18] VITALS: BP 142/61
[2022-02-16] MEDS: PERCOCET 5MG/325MG TAB PO PRN (21:41)
[2022-02-16] MEDS: REMDESIVIR 100 MG in NS 250 ML IV SCH (22:43)
[2022-02-17] MEDS: SODIUM CHLORIDE 0.9% INJ 10 ML SYR IV SCH ×2 (00:03→23:19)
[2022-02-17] MEDS: VANCOMYCIN HCL 750 MG, VIAL MATE ADAPTER 1 EACH in D5W 250 ML IV SCH (00:03)
[2022-02-17] MEDS: VANCOMYCIN HCL 500 MG in D5W MINI-BAG PLUS 100 ML IV SCH (01:35)
[2022-02-17] MEDS: cefTRIAXone SOD 2 GM in D5W MINI-BAG PLUS 50 ML IV SCH (01:35)
[2022-02-17 03:40] LABS: HEMATOCRIT 31.3 % (36.0-47.0); HEMOGLOBIN 10.8 g/dl (12.0-15.5); MEAN CORPUSCULAR HEMOGLOBIN 30.8 pg (27.0-33.0); MEAN CORPUSCULAR HGB CONC 34.5 g/dl (32.0-36.5); MEAN CORPUSCULAR VOLUME 89.2 fl (80.0-96.0); PLATELET COUNT, AUTOMATED 253 10^3/uL (150-450); RED BLOOD COUNT 3.51 10^6/uL (4.00-5.40); WHITE BLOOD COUNT 15.9 10^3/uL (4.0-10.0)
[2022-02-17 04:00] VITALS: BP 136/64
[2022-02-17 04:13] LABS: BLOOD UREA NITROGEN 6 MG/DL (7-18); CALCIUM LEVEL 8.1 MG/DL (8.8-10.2); CARBON DIOXIDE LEVEL 26 MEQ/L (21-32); CHLORIDE LEVEL 105 MEQ/L (98-107); CREATININE FOR GFR 0.35 MG/DL (0.55-1.30); GLOMERULAR FILTRATION RATE > 60.0 (>32); GLUCOSE, FASTING 127 MG/DL (70-100); MAGNESIUM LEVEL 1.7 MG/DL (1.8-2.4); POTASSIUM SERUM 3.4 MEQ/L (3.5-5.1); SODIUM LEVEL 138 MEQ/L (136-145)
[2022-02-17] MEDS: LEVOTHYROXINE 50MCG TABLET (0.05MG) PO SCH (06:20)
[2022-02-17 07:22] VITALS: BP 157/72
[2022-02-17] MEDS ORDERED: PERCOCET 5MG/325MG TAB PO ONE (08:00)
[2022-02-17] MEDS: guaiFENesin ER 600 MG TAB PO SCH ×2 (08:18→21:30)
[2022-02-17] MEDS: POTASSIUM CHLORIDE 10MEQ SR TABLET PO SCH (08:19)
[2022-02-17] MEDS: SERTRALINE 100 MG TAB PO SCH (08:20)
[2022-02-17] MEDS: DOCUSATE SODIUM 100MG CAPSULE PO SCH ×2 (08:20→21:00)
[2022-02-17] MEDS: HYDROXYCHLOROQUINE 200 MG TAB PO SCH (08:20)
[2022-02-17] MEDS: allopurinoL 100 MG TAB PO SCH (08:20)
[2022-02-17] MEDS: GABAPENTIN 100 MG CAP PO SCH ×2 (08:20→21:30)
[2022-02-17] MEDS: ENOXAPARIN 40MG/0.4ML SYRINGE (J1650 PER 10MG) SC SCH (08:21)
[2022-02-17] MEDS: LIDOCAINE 5% (LIDODERM) PATCH TD SCH (08:21)
[2022-02-17] MEDS: ANALGESIC BALM CRM 3OZ TOP SCH ×4 (08:22→21:33)
[2022-02-17 11:35] VITALS: BP 176/83
[2022-02-17] MEDS ORDERED: MAG SULF 1GM/100ML (MAG RUN) 1 GM in IV 1 EA IV ONE (12:00)
[2022-02-17] MEDS ORDERED: POTASSIUM CHLORIDE 10MEQ SR TABLET PO ONE (12:00)
[2022-02-17] MEDS: VANCOMYCIN HCL 1,000 MG, VIAL MATE ADAPTER 1 EACH in D5W 250 ML IV SCH ×2 (13:32→21:31)
[2022-02-17 15:45] VITALS: BP 144/73
[2022-02-17] MEDS: ACETAMINOPHEN TAB 650MG DOSE (2X325MG) PO PRN (21:30)
[2022-02-17] MEDS: **NOTE PATIENT COMMENT** MISC XX SCH (21:33)
[2022-02-17 22:00] VITALS: BP 144/72
[2022-02-17] MEDS: REMDESIVIR 100 MG in NS 250 ML IV SCH (23:19)
[2022-02-18] MEDS: cefTRIAXone SOD 2 GM in D5W MINI-BAG PLUS 50 ML IV SCH (00:58)
[2022-02-18 04:11] LABS: HEMATOCRIT 34.1 % (36.0-47.0); HEMOGLOBIN 11.7 g/dl (12.0-15.5); MEAN CORPUSCULAR HEMOGLOBIN 30.3 pg (27.0-33.0); MEAN CORPUSCULAR HGB CONC 34.3 g/dl (32.0-36.5); MEAN CORPUSCULAR VOLUME 88.3 fl (80.0-96.0); PLATELET COUNT, AUTOMATED 297 10^3/uL (150-450); RED BLOOD COUNT 3.86 10^6/uL (4.00-5.40); WHITE BLOOD COUNT 17.2 10^3/uL (4.0-10.0)
[2022-02-18 04:43] LABS: BLOOD UREA NITROGEN 6 MG/DL (7-18); CALCIUM LEVEL 8.5 MG/DL (8.8-10.2); CARBON DIOXIDE LEVEL 26 MEQ/L (21-32); CHLORIDE LEVEL 102 MEQ/L (98-107); GLOMERULAR FILTRATION RATE > 60.0 (>32); GLUCOSE, FASTING 102 MG/DL (70-100); MAGNESIUM LEVEL 1.8 MG/DL (1.8-2.4); POTASSIUM SERUM 3.7 MEQ/L (3.5-5.1); SODIUM LEVEL 135 MEQ/L (136-145)
[2022-02-18] MEDS: VANCOMYCIN HCL 1,000 MG, VIAL MATE ADAPTER 1 EACH in D5W 250 ML IV SCH (05:22)
[2022-02-18] MEDS: LEVOTHYROXINE 50MCG TABLET (0.05MG) PO SCH (05:22)
[2022-02-18 05:26] VITALS: BP 145/74
[2022-02-18] MEDS: HYDROXYCHLOROQUINE 200 MG TAB PO SCH (08:03)
[2022-02-18] MEDS: allopurinoL 100 MG TAB PO SCH (08:03)
[2022-02-18] MEDS: DOCUSATE SODIUM 100MG CAPSULE PO SCH (08:03)
[2022-02-18] MEDS: POTASSIUM CHLORIDE 10MEQ SR TABLET PO SCH ×3 (08:03→21:00)
[2022-02-18] MEDS: GABAPENTIN 100 MG CAP PO SCH ×2 (08:03→21:51)
[2022-02-18] MEDS: guaiFENesin ER 600 MG TAB PO SCH ×2 (08:04→21:51)
[2022-02-18] MEDS: ENOXAPARIN 40MG/0.4ML SYRINGE (J1650 PER 10MG) SC SCH (08:04)
[2022-02-18] MEDS: SERTRALINE 100 MG TAB PO SCH (08:04)
[2022-02-18] MEDS: MAGNESIUM OXIDE 400MG TAB (MAG-OX) PO SCH ×2 (08:04→21:51)
[2022-02-18] MEDS: ANALGESIC BALM CRM 3OZ TOP SCH ×4 (08:05→21:52)
[2022-02-18] MEDS: LIDOCAINE 5% (LIDODERM) PATCH TD SCH (08:10)
[2022-02-18] MEDS ORDERED: MORPHINE 2 MG/ML 1ML VIAL IV ONE (10:00)
[2022-02-18] MEDS: ceFAZolin SOD 2 GM in IV 1 EA IV SCH ×2 (10:42→17:05)
[2022-02-18] MEDS ORDERED: LIDOCAINE 1% MDV 20ML VIAL As Ordered ONE (11:20)
[2022-02-18 14:00] VITALS: BP 102/64
[2022-02-18] MEDS: SODIUM CHLORIDE 0.9% INJ 10 ML SYR IV SCH (17:08)
[2022-02-18] MEDS: ACETAMINOPHEN TAB 650MG DOSE (2X325MG) PO PRN (21:51)
[2022-02-18] MEDS: **NOTE PATIENT COMMENT** MISC XX SCH (21:53)
[2022-02-18 22:00] VITALS: BP 152/77
[2022-02-19] MEDS: ceFAZolin SOD 2 GM in IV 1 EA IV SCH ×3 (02:49→17:42)
[2022-02-19 06:00] VITALS: BP 148/79
[2022-02-19] MEDS: SODIUM CHLORIDE 0.9% INJ 10 ML SYR IV SCH ×3 (06:00→18:43)
[2022-02-19] MEDS: LEVOTHYROXINE 50MCG TABLET (0.05MG) PO SCH (06:00)
[2022-02-19 06:18] LABS: HEMATOCRIT 38.1 % (36.0-47.0); HEMOGLOBIN 12.7 g/dl (12.0-15.5); MEAN CORPUSCULAR HEMOGLOBIN 30.2 pg (27.0-33.0); MEAN CORPUSCULAR HGB CONC 33.3 g/dl (32.0-36.5); MEAN CORPUSCULAR VOLUME 90.7 fl (80.0-96.0); PLATELET COUNT, AUTOMATED 335 10^3/uL (150-450); WHITE BLOOD COUNT 16.7 10^3/uL (4.0-10.0)
[2022-02-19 06:41] LABS: ALBUMIN 2.3 GM/DL (3.2-5.2); ALT/SGPT 96 U/L (12-78); BILIRUBIN,TOTAL 0.5 MG/DL (0.2-1.0); BLOOD UREA NITROGEN 9 MG/DL (7-18); CALCIUM LEVEL 8.5 MG/DL (8.8-10.2); CARBON DIOXIDE LEVEL 24 MEQ/L (21-32); CHLORIDE LEVEL 105 MEQ/L (98-107); CREATININE FOR GFR 0.47 MG/DL (0.55-1.30); GLOMERULAR FILTRATION RATE > 60.0 (>32); GLUCOSE, FASTING 103 MG/DL (70-100); MAGNESIUM LEVEL 2.1 MG/DL (1.8-2.4); POTASSIUM SERUM 4.3 MEQ/L (3.5-5.1); SODIUM LEVEL 137 MEQ/L (136-145); TOTAL PROTEIN 6.7 GM/DL (6.4-8.2)
[2022-02-19] MEDS: POTASSIUM CHLORIDE 10MEQ SR TABLET PO SCH ×3 (08:41→21:00)
[2022-02-19] MEDS: guaiFENesin ER 600 MG TAB PO SCH ×2 (08:41→22:38)
[2022-02-19] MEDS: GABAPENTIN 100 MG CAP PO SCH ×2 (08:42→22:38)
[2022-02-19] MEDS: HYDROXYCHLOROQUINE 200 MG TAB PO SCH (08:42)
[2022-02-19] MEDS: MAGNESIUM OXIDE 400MG TAB (MAG-OX) PO SCH ×2 (08:42→22:37)
[2022-02-19] MEDS: allopurinoL 100 MG TAB PO SCH (08:42)
[2022-02-19] MEDS: SERTRALINE 100 MG TAB PO SCH (08:42)
[2022-02-19] MEDS: LIDOCAINE 5% (LIDODERM) PATCH TD SCH (08:43)
[2022-02-19] MEDS: ENOXAPARIN 40MG/0.4ML SYRINGE (J1650 PER 10MG) SC SCH (08:43)
[2022-02-19] MEDS: ANALGESIC BALM CRM 3OZ TOP SCH ×4 (08:44→22:39)
[2022-02-19] MEDS: SODIUM CHLORIDE 0.9% INJ 10 ML SYR IV PRN (11:44)
[2022-02-19 20:35] VITALS: BP 138/76
[2022-02-19] MEDS: **NOTE PATIENT COMMENT** MISC XX SCH (21:00)
[2022-02-19] MEDS: ACETAMINOPHEN TAB 650MG DOSE (2X325MG) PO PRN (22:38)
[2022-02-20] MEDS: ceFAZolin SOD 2 GM in IV 1 EA IV SCH ×3 (02:52→17:30)
[2022-02-20 06:00] VITALS: BP 141/74
[2022-02-20] MEDS: SODIUM CHLORIDE 0.9% INJ 10 ML SYR IV SCH ×2 (06:18→18:31)
[2022-02-20] MEDS: LEVOTHYROXINE 50MCG TABLET (0.05MG) PO SCH (06:18)
[2022-02-20 06:19] LABS: HEMATOCRIT 37.8 % (36.0-47.0); HEMOGLOBIN 12.7 g/dl (12.0-15.5); MEAN CORPUSCULAR HEMOGLOBIN 30.8 pg (27.0-33.0); MEAN CORPUSCULAR HGB CONC 33.6 g/dl (32.0-36.5); MEAN CORPUSCULAR VOLUME 91.5 fl (80.0-96.0); PLATELET COUNT, AUTOMATED 335 10^3/uL (150-450); RED BLOOD COUNT 4.13 10^6/uL (4.00-5.40); WHITE BLOOD COUNT 14.1 10^3/uL (4.0-10.0)
[2022-02-20 07:21] LABS: ALBUMIN 2.4 GM/DL (3.2-5.2); ALT/SGPT 81 U/L (12-78); BILIRUBIN,TOTAL 0.4 MG/DL (0.2-1.0); BLOOD UREA NITROGEN 11 MG/DL (7-18); CALCIUM LEVEL 8.9 MG/DL (8.8-10.2); CARBON DIOXIDE LEVEL 30 MEQ/L (21-32); CHLORIDE LEVEL 104 MEQ/L (98-107); CREATININE FOR GFR 0.54 MG/DL (0.55-1.30); GLOMERULAR FILTRATION RATE > 60.0 (>32); GLUCOSE, FASTING 103 MG/DL (70-100); MAGNESIUM LEVEL 2.2 MG/DL (1.8-2.4); POTASSIUM SERUM 4.8 MEQ/L (3.5-5.1); SODIUM LEVEL 137 MEQ/L (136-145); TOTAL PROTEIN 6.9 GM/DL (6.4-8.2)
[2022-02-20] MEDS: POTASSIUM CHLORIDE 10MEQ SR TABLET PO SCH ×3 (07:44→21:00)
[2022-02-20] MEDS: LIDOCAINE 5% (LIDODERM) PATCH TD SCH (07:45)
[2022-02-20] MEDS: ANALGESIC BALM CRM 3OZ TOP SCH ×4 (07:46→22:09)
[2022-02-20] MEDS: SERTRALINE 100 MG TAB PO SCH (07:47)
[2022-02-20] MEDS: ENOXAPARIN 40MG/0.4ML SYRINGE (J1650 PER 10MG) SC SCH (07:47)
[2022-02-20] MEDS: HYDROXYCHLOROQUINE 200 MG TAB PO SCH (07:47)
[2022-02-20] MEDS: allopurinoL 100 MG TAB PO SCH (07:47)
[2022-02-20] MEDS: MAGNESIUM OXIDE 400MG TAB (MAG-OX) PO SCH ×2 (07:48→22:08)
[2022-02-20] MEDS: guaiFENesin ER 600 MG TAB PO SCH ×2 (07:48→22:08)
[2022-02-20] MEDS: GABAPENTIN 100 MG CAP PO SCH ×2 (07:48→22:08)
[2022-02-20] MEDS: SODIUM CHLORIDE 0.9% INJ 10 ML SYR IV PRN (11:02)
[2022-02-20 14:00] VITALS: BP 94/62
[2022-02-20] MEDS ORDERED: traMADol 50 MG TAB PO PRN (14:55)
[2022-02-20 17:23] LABS: HEPATITIS B SURFACE ANTIGEN NEGATIVE (NEGATIVE)
[2022-02-20] MEDS: **NOTE PATIENT COMMENT** MISC XX SCH (21:00)
[2022-02-20 22:00] VITALS: BP 154/81
[2022-02-20] MEDS: ACETAMINOPHEN TAB 650MG DOSE (2X325MG) PO PRN (22:08)
[2022-02-21] MEDS: ceFAZolin SOD 2 GM in IV 1 EA IV SCH ×3 (01:55→18:08)
[2022-02-21] MEDS: LEVOTHYROXINE 50MCG TABLET (0.05MG) PO SCH (05:08)
[2022-02-21] MEDS: SODIUM CHLORIDE 0.9% INJ 10 ML SYR IV SCH ×2 (05:09→18:00)
[2022-02-21 05:14] VITALS: BP 146/74
[2022-02-21 07:58] LABS: HEMATOCRIT 36.6 % (36.0-47.0); HEMOGLOBIN 11.9 g/dl (12.0-15.5); MEAN CORPUSCULAR HEMOGLOBIN 29.7 pg (27.0-33.0); MEAN CORPUSCULAR HGB CONC 32.5 g/dl (32.0-36.5); MEAN CORPUSCULAR VOLUME 91.3 fl (80.0-96.0); PLATELET COUNT, AUTOMATED 333 10^3/uL (150-450); RED BLOOD COUNT 4.01 10^6/uL (4.00-5.40); WHITE BLOOD COUNT 12.3 10^3/uL (4.0-10.0)
[2022-02-21 08:30] LABS: ALBUMIN 2.4 GM/DL (3.2-5.2); ALT/SGPT 79 U/L (12-78); BILIRUBIN,TOTAL 0.4 MG/DL (0.2-1.0); BLOOD UREA NITROGEN 12 MG/DL (7-18); CALCIUM LEVEL 8.5 MG/DL (8.8-10.2); CARBON DIOXIDE LEVEL 26 MEQ/L (21-32); CHLORIDE LEVEL 102 MEQ/L (98-107); CREATININE FOR GFR 0.53 MG/DL (0.55-1.30); GLOMERULAR FILTRATION RATE > 60.0 (>32); GLUCOSE, FASTING 89 MG/DL (70-100); MAGNESIUM LEVEL 2.2 MG/DL (1.8-2.4); POTASSIUM SERUM 3.8 MEQ/L (3.5-5.1); SODIUM LEVEL 135 MEQ/L (136-145); TOTAL PROTEIN 6.6 GM/DL (6.4-8.2)
[2022-02-21] MEDS: POTASSIUM CHLORIDE 10MEQ SR TABLET PO SCH ×3 (09:00→20:13)
[2022-02-21] MEDS: LIDOCAINE 5% (LIDODERM) PATCH TD SCH (10:03)
[2022-02-21] MEDS: HYDROXYCHLOROQUINE 200 MG TAB PO SCH (10:04)
[2022-02-21] MEDS: SERTRALINE 100 MG TAB PO SCH (10:05)
[2022-02-21] MEDS: ANALGESIC BALM CRM 3OZ TOP SCH ×4 (10:05→20:50)
[2022-02-21] MEDS: allopurinoL 100 MG TAB PO SCH (10:05)
[2022-02-21] MEDS: GABAPENTIN 100 MG CAP PO SCH ×2 (10:05→20:49)
[2022-02-21] MEDS: guaiFENesin ER 600 MG TAB PO SCH ×2 (10:05→20:49)
[2022-02-21] MEDS: ENOXAPARIN 40MG/0.4ML SYRINGE (J1650 PER 10MG) SC SCH (10:06)
[2022-02-21] MEDS: MAGNESIUM OXIDE 400MG TAB (MAG-OX) PO SCH ×2 (10:06→20:49)
[2022-02-21 14:00] VITALS: BP 147/67
[2022-02-21] MEDS: **NOTE PATIENT COMMENT** MISC XX SCH (20:50)
[2022-02-21] MEDS: SODIUM CHLORIDE 0.9% INJ 10 ML SYR IV PRN (20:53)
[2022-02-21 21:47] VITALS: BP 141/88
[2022-02-22] MEDS: ceFAZolin SOD 2 GM in IV 1 EA IV SCH ×3 (02:59→17:43)
[2022-02-22] MEDS: SODIUM CHLORIDE 0.9% INJ 10 ML SYR IV PRN (04:01)
[2022-02-22] MEDS: LEVOTHYROXINE 50MCG TABLET (0.05MG) PO SCH (06:22)
[2022-02-22] MEDS: SODIUM CHLORIDE 0.9% INJ 10 ML SYR IV SCH ×2 (06:24→17:48)
[2022-02-22 06:33] VITALS: BP 131/78
[2022-02-22 06:37] LABS: ALBUMIN 2.5 GM/DL (3.2-5.2); ALT/SGPT 82 U/L (12-78); BILIRUBIN,TOTAL 0.4 MG/DL (0.2-1.0); BLOOD UREA NITROGEN 10 MG/DL (7-18); CALCIUM LEVEL 8.7 MG/DL (8.8-10.2); CARBON DIOXIDE LEVEL 23 MEQ/L (21-32); CHLORIDE LEVEL 101 MEQ/L (98-107); CREATININE FOR GFR 0.54 MG/DL (0.55-1.30); GLOMERULAR FILTRATION RATE > 60.0 (>32); GLUCOSE, FASTING 93 MG/DL (70-100); POTASSIUM SERUM 3.8 MEQ/L (3.5-5.1); SODIUM LEVEL 132 MEQ/L (136-145); TOTAL PROTEIN 6.9 GM/DL (6.4-8.2)
[2022-02-22] MEDS: guaiFENesin ER 600 MG TAB PO SCH ×2 (09:33→21:50)
[2022-02-22] MEDS: POTASSIUM CHLORIDE 10MEQ SR TABLET PO SCH ×3 (09:33→21:00)
[2022-02-22] MEDS: GABAPENTIN 100 MG CAP PO SCH ×2 (09:33→21:50)
[2022-02-22] MEDS: SERTRALINE 100 MG TAB PO SCH (09:34)
[2022-02-22] MEDS: HYDROXYCHLOROQUINE 200 MG TAB PO SCH (09:34)
[2022-02-22] MEDS: allopurinoL 100 MG TAB PO SCH (09:34)
[2022-02-22] MEDS: ENOXAPARIN 40MG/0.4ML SYRINGE (J1650 PER 10MG) SC SCH (09:35)
[2022-02-22] MEDS: LIDOCAINE 5% (LIDODERM) PATCH TD SCH (09:36)
[2022-02-22] MEDS: MAGNESIUM OXIDE 400MG TAB (MAG-OX) PO SCH ×2 (09:36→21:51)
[2022-02-22] MEDS: ANALGESIC BALM CRM 3OZ TOP SCH ×4 (09:37→21:53)
[2022-02-22 14:00] VITALS: BP 134/79
[2022-02-22 20:00] VITALS: BP 130/68
[2022-02-22] MEDS: **NOTE PATIENT COMMENT** MISC XX SCH ×2 (21:00→21:52)
[2022-02-22] MEDS: ACETAMINOPHEN TAB 650MG DOSE (2X325MG) PO PRN (21:56)
[2022-02-23] MEDS: ceFAZolin SOD 2 GM in IV 1 EA IV SCH ×3 (02:17→17:18)
[2022-02-23] MEDS: LEVOTHYROXINE 50MCG TABLET (0.05MG) PO SCH (06:12)
[2022-02-23] MEDS: SODIUM CHLORIDE 0.9% INJ 10 ML SYR IV SCH ×2 (06:13→17:19)
[2022-02-23 06:25] VITALS: BP 140/72
[2022-02-23 06:54] LABS: ALBUMIN 2.5 GM/DL (3.2-5.2); ALT/SGPT 84 U/L (12-78); BILIRUBIN,TOTAL 0.4 MG/DL (0.2-1.0); BLOOD UREA NITROGEN 12 MG/DL (7-18); CALCIUM LEVEL 8.7 MG/DL (8.8-10.2); CARBON DIOXIDE LEVEL 24 MEQ/L (21-32); CHLORIDE LEVEL 102 MEQ/L (98-107); CREATININE FOR GFR 0.53 MG/DL (0.55-1.30); GLOMERULAR FILTRATION RATE > 60.0 (>32); GLUCOSE, FASTING 88 MG/DL (70-100); POTASSIUM SERUM 3.9 MEQ/L (3.5-5.1); SODIUM LEVEL 133 MEQ/L (136-145)
[2022-02-23] MEDS: POTASSIUM CHLORIDE 10MEQ SR TABLET PO SCH ×3 (09:00→20:58)
[2022-02-23] MEDS: ENOXAPARIN 40MG/0.4ML SYRINGE (J1650 PER 10MG) SC SCH (10:10)
[2022-02-23] MEDS: GABAPENTIN 100 MG CAP PO SCH ×2 (10:10→20:56)
[2022-02-23] MEDS: allopurinoL 100 MG TAB PO SCH (10:10)
[2022-02-23] MEDS: SERTRALINE 100 MG TAB PO SCH (10:10)
[2022-02-23] MEDS: HYDROXYCHLOROQUINE 200 MG TAB PO SCH (10:11)
[2022-02-23] MEDS: guaiFENesin ER 600 MG TAB PO SCH ×2 (10:11→20:57)
[2022-02-23] MEDS: ANALGESIC BALM CRM 3OZ TOP SCH ×4 (10:12→20:58)
[2022-02-23] MEDS: MAGNESIUM OXIDE 400MG TAB (MAG-OX) PO SCH ×2 (10:12→20:57)
[2022-02-23] MEDS: LIDOCAINE 5% (LIDODERM) PATCH TD SCH (10:14)
[2022-02-23] MEDS: SODIUM CHLORIDE 0.9% INJ 10 ML SYR IV PRN (11:25)
[2022-02-23 14:00] VITALS: BP 131/77
[2022-02-23] MEDS ORDERED: TRAM50TA2 PO (18:01)
[2022-02-23] MEDS ORDERED: AMLO1TAB25 PO (18:01)
[2022-02-23] MEDS ORDERED: ACET1TAB55 PO (18:01)
[2022-02-23] MEDS ORDERED: MAGN400T2 PO (18:01)
[2022-02-23] MEDS ORDERED: CEFA2SOL IV (18:07)
[2022-02-23 20:00] VITALS: BP 131/76
[2022-02-23] MEDS: **NOTE PATIENT COMMENT** MISC XX SCH (20:59)
[2022-02-24] MEDS: ceFAZolin SOD 2 GM in IV 1 EA IV SCH ×2 (02:54→10:28)
[2022-02-24] MEDS: SODIUM CHLORIDE 0.9% INJ 10 ML SYR IV PRN ×2 (03:47→11:46)
[2022-02-24 06:00] VITALS: BP 123/71
[2022-02-24] MEDS: LEVOTHYROXINE 50MCG TABLET (0.05MG) PO SCH (06:34)
[2022-02-24] MEDS: SODIUM CHLORIDE 0.9% INJ 10 ML SYR IV SCH (06:34)
[2022-02-24 08:00] LABS: ALBUMIN 2.7 GM/DL (3.2-5.2); ALT/SGPT 81 U/L (12-78); BILIRUBIN,TOTAL 0.3 MG/DL (0.2-1.0); BLOOD UREA NITROGEN 13 MG/DL (7-18); CALCIUM LEVEL 8.6 MG/DL (8.8-10.2); CARBON DIOXIDE LEVEL 24 MEQ/L (21-32); CHLORIDE LEVEL 101 MEQ/L (98-107); CREATININE FOR GFR 0.54 MG/DL (0.55-1.30); GLOMERULAR FILTRATION RATE > 60.0 (>32); GLUCOSE, FASTING 103 MG/DL (70-100); POTASSIUM SERUM 4.1 MEQ/L (3.5-5.1); SODIUM LEVEL 134 MEQ/L (136-145); TOTAL PROTEIN 7.3 GM/DL (6.4-8.2)
[2022-02-24] MEDS ORDERED: ACYC1TAB PO (08:17)
[2022-02-24 09:00] VITALS: BP 118/73
[2022-02-24] MEDS: POTASSIUM CHLORIDE 10MEQ SR TABLET PO SCH (09:00)
[2022-02-24] MEDS: guaiFENesin ER 600 MG TAB PO SCH (10:27)
[2022-02-24] MEDS: SERTRALINE 100 MG TAB PO SCH (10:27)
[2022-02-24] MEDS: allopurinoL 100 MG TAB PO SCH (10:27)
[2022-02-24] MEDS: ENOXAPARIN 40MG/0.4ML SYRINGE (J1650 PER 10MG) SC SCH (10:28)
[2022-02-24] MEDS: GABAPENTIN 100 MG CAP PO SCH (10:28)
[2022-02-24] MEDS: HYDROXYCHLOROQUINE 200 MG TAB PO SCH (10:28)
[2022-02-24] MEDS: MAGNESIUM OXIDE 400MG TAB (MAG-OX) PO SCH (10:28)
[2022-02-24] MEDS: LIDOCAINE 5% (LIDODERM) PATCH TD SCH (10:29)
[2022-02-24] MEDS: ANALGESIC BALM CRM 3OZ TOP SCH ×2 (10:30→13:00)
== END 2022-02-24 14:15 | disposition home health service (06) | DRG 551 ==
LOC: M ED 15:12 → EDBD 15:12 → M ED INP 02-15 00:24 → ENRESERV 02-15 01:33 → M PCU 02-15 02:25 → M MS5PR 02-17 15:45
PROVIDERS: ADMIT Internal Medicine; ATTEND Internal Medicine
DX: M46.46 Discitis, unspecified, lumbar region (principal); U07.1 COVID-19; R78.81 Bacteremia; R44.3 Hallucinations, unspecified; N39.0 Urinary tract infection, site not specified; M35.1 Other overlap syndromes; E87.1 Hypo-osmolality and hyponatremia; G93.40 Encephalopathy, unspecified; L03.114 Cellulitis of left upper limb; M35.89 Other specified systemic involvement of connective tissue; E03.9 Hypothyroidism, unspecified; B95.61 Methicillin susceptible Staphylococcus aureus infection as the cause of diseases classified elsewhere; R74.01 Elevation of levels of liver transaminase levels; E78.5 Hyperlipidemia, unspecified; F41.9 Anxiety disorder, unspecified; F32.A Depression, unspecified; B00.1 Herpesviral vesicular dermatitis; Z85.3 Personal history of malignant neoplasm of breast; Z92.3 Personal history of irradiation; Z88.0 Allergy status to penicillin; Z88.2 Allergy status to sulfonamides; Z79.899 Other long term (current) drug therapy; M10.9 Gout, unspecified; K52.839 Microscopic colitis, unspecified; E87.6 Hypokalemia

== ENCOUNTER → 2022-10-01 | Outpatient (REF) | payer MEDICARE ==
[~2022-10-01] MED LIST changes: +ACET1TAB55 PO; +ACYC1TAB PO; +AMLO1TAB25 PO; +CEFA2SOL IV; +HYDR200T3 PO; +MAGN400T2 PO; +PRED5TA PO
[2022-10-01 12:12] LABS: BASO % 0.4 % (0.0-1.0); EOS # 0.1 10^3/uL (0.0-0.5); EOS % 1.6 % (0.0-3.0); HEMATOCRIT 44.3 % (36.0-47.0); HEMOGLOBIN 14.8 g/dl (12.0-15.5); LYMPH # 1.8 10^3/uL (1.5-5.0); LYMPH % 26.5 % (24.0-44.0); MEAN CORPUSCULAR HEMOGLOBIN 30.5 pg (27.0-33.0); MEAN CORPUSCULAR HGB CONC 33.4 g/dl (32.0-36.5); MEAN CORPUSCULAR VOLUME 91.2 fl (80.0-96.0); MONO # 0.5 10^3/uL (0.0-0.8); MONO % 7.6 % (2.0-8.0); NEUTROPHILS # 4.4 10^3/uL (1.5-8.5); NEUTROPHILS % 63.8 % (36.0-66.0); PLATELET COUNT, AUTOMATED 186 10^3/uL (150-450); RED BLOOD COUNT 4.86 10^6/uL (4.00-5.40); WHITE BLOOD COUNT 6.9 10^3/uL (4.0-10.0)
[2022-10-01 12:37] LABS: URIC ACID 3.5 MG/DL (3.1-7.8)
[2022-10-01 12:41] LABS: ALBUMIN 4.1 G/DL (3.2-5.2); ALKALINE PHOSPHATASE 60 U/L (46-116); ALT/SGPT 43 U/L (7.0-40); AST/SGOT 34 U/L (<34); BILIRUBIN,TOTAL 0.4 MG/DL (0.3-1.2); BLOOD UREA NITROGEN 16 MG/DL (9-23); CALCIUM LEVEL 9.2 MG/DL (8.3-10.6); CARBON DIOXIDE LEVEL 32 MMOL/L (20-31); CHLORIDE LEVEL 106 MMOL/L (98-107); CHOLESTEROL LEVEL 159 MG/DL (<200); CHOLESTEROL RISK RATIO 2.48 (<5); CREATININE FOR GFR 0.86 MG/DL (0.55-1.30); FREE T4 0.76 NG/DL (0.89-1.76); GLOMERULAR FILTRATION RATE > 60.0 (>32); GLUCOSE, FASTING 82 MG/DL (74-106); HDL CHOLESTEROL 63.9 MG/DL (>40); LDL CHOLESTEROL 66.9 MG/DL (<100); NON-HDL-C 95.1 MG/DL; SODIUM LEVEL 141 MMOL/L (136-145); THYROID STIMULATING HORMONE 6.392 uIU/ML (0.55-4.78); TOTAL PROTEIN 7.2 G/DL (5.7-8.2); TRIGLYCERIDES LEVEL 141 MG/DL (<150)
== END ==
LOC: M SFHCCLAY 08:33
PROVIDERS: ATTEND Family Medicine
DX: M46.40 Discitis, unspecified, site unspecified (principal); G93.40 Encephalopathy, unspecified; E03.9 Hypothyroidism, unspecified; E78.5 Hyperlipidemia, unspecified; M1A.9XX0 Chronic gout, unspecified, without tophus (tophi)

== ENCOUNTER → 2022-10-10 | Outpatient (CLI) | payer MEDICARE | LOC: M WHC 13:48 | PROVIDERS: ATTEND Family Medicine | DX: Z78.0 Asymptomatic menopausal state (principal) ==

== ENCOUNTER → 2022-10-23 | Outpatient (CLI) | payer MEDICARE | LOC: M WHC 12:38 | PROVIDERS: ATTEND Family Medicine | DX: Z12.31 Encounter for screening mammogram for malignant neoplasm of breast (principal); Z78.0 Asymptomatic menopausal state; M85.851 Other specified disorders of bone density and structure, right thigh; M85.852 Other specified disorders of bone density and structure, left thigh; Z85.3 Personal history of malignant neoplasm of breast ==

== ENCOUNTER → 2022-12-02 | Outpatient (REF) | payer MEDICARE ==
[~2022-12-02] MED LIST changes: -HYDR200T3 PO; +HYDR200T46 PO; -ROSU20TA5; +ROSU20TA61
[2022-12-02 12:46] LABS: BASO % 0.5 % (0.0-1.0); EOS # 0.1 10^3/uL (0.0-0.5); EOS % 1.8 % (0.0-3.0); HEMATOCRIT 44.2 % (36.0-47.0); HEMOGLOBIN 14.9 g/dl (12.0-15.5); LYMPH # 1.7 10^3/uL (1.5-5.0); LYMPH % 25.7 % (24.0-44.0); MEAN CORPUSCULAR HEMOGLOBIN 30.9 pg (27.0-33.0); MEAN CORPUSCULAR HGB CONC 33.7 g/dl (32.0-36.5); MEAN CORPUSCULAR VOLUME 91.7 fl (80.0-96.0); MONO # 0.5 10^3/uL (0.0-0.8); NEUTROPHILS # 4.2 10^3/uL (1.5-8.5); NEUTROPHILS % 63.7 % (36.0-66.0); PLATELET COUNT, AUTOMATED 167 10^3/uL (150-450); RED BLOOD COUNT 4.82 10^6/uL (4.00-5.40); WHITE BLOOD COUNT 6.6 10^3/uL (4.0-10.0)
[2022-12-02 13:11] LABS: ERYTHROCYTE SEDIMENTATION RATE 12 mm/hr (0-30)
[2022-12-02 13:12] LABS: C REACTIVE PROTEIN QUANTITATIV < 0.40 MG/DL (<1.0)
[2022-12-02 13:14] LABS: BLOOD UREA NITROGEN 21 MG/DL (9-23); CALCIUM LEVEL 8.9 MG/DL (8.3-10.6); CARBON DIOXIDE LEVEL 30 MMOL/L (20-31); CHLORIDE LEVEL 107 MMOL/L (98-107); GLOMERULAR FILTRATION RATE > 60.0 (>32); GLUCOSE, FASTING 82 MG/DL (74-106); POTASSIUM SERUM 4.1 MMOL/L (3.5-5.1); SODIUM LEVEL 141 MMOL/L (136-145)
[2022-12-02 13:16] LABS: FREE T4 0.77 NG/DL (0.89-1.76); THYROID STIMULATING HORMONE 4.605 uIU/ML (0.55-4.78)
== END ==
LOC: M SFHCCLAY 08:26
PROVIDERS: ATTEND Family Medicine
DX: E03.9 Hypothyroidism, unspecified (principal); M35.1 Other overlap syndromes

== ENCOUNTER → 2022-12-08 | Outpatient (REF) | payer MEDICARE ==
[2022-12-08 11:54] LABS: BASO % 0.5 % (0.0-1.0); EOS # 0.2 10^3/uL (0.0-0.5); EOS % 2.5 % (0.0-3.0); HEMATOCRIT 42.4 % (36.0-47.0); HEMOGLOBIN 14.2 g/dl (12.0-15.5); LYMPH # 1.6 10^3/uL (1.5-5.0); LYMPH % 27.6 % (24.0-44.0); MEAN CORPUSCULAR HEMOGLOBIN 30.9 pg (27.0-33.0); MEAN CORPUSCULAR HGB CONC 33.5 g/dl (32.0-36.5); MEAN CORPUSCULAR VOLUME 92.2 fl (80.0-96.0); MONO # 0.5 10^3/uL (0.0-0.8); MONO % 8.8 % (2.0-8.0); NEUTROPHILS # 3.6 10^3/uL (1.5-8.5); NEUTROPHILS % 60.3 % (36.0-66.0); PLATELET COUNT, AUTOMATED 171 10^3/uL (150-450); WHITE BLOOD COUNT 5.9 10^3/uL (4.0-10.0)
[2022-12-08 12:14] LABS: ERYTHROCYTE SEDIMENTATION RATE 10 mm/hr (0-30)
[2022-12-08 12:25] LABS: C REACTIVE PROTEIN QUANTITATIV < 0.40 MG/DL (<1.0)
[2022-12-08 12:27] LABS: ALBUMIN 3.9 G/DL (3.2-5.2); ALKALINE PHOSPHATASE 52 U/L (46-116); ALT/SGPT 25 U/L (7.0-40); AST/SGOT 17 U/L (<34); BILIRUBIN,TOTAL 0.4 MG/DL (0.3-1.2); BLOOD UREA NITROGEN 18 MG/DL (9-23); CALCIUM LEVEL 9.2 MG/DL (8.3-10.6); CARBON DIOXIDE LEVEL 30 MMOL/L (20-31); CHLORIDE LEVEL 107 MMOL/L (98-107); CHOLESTEROL LEVEL 138 MG/DL (<200); CHOLESTEROL RISK RATIO 2.18 (<5); CREATININE FOR GFR 0.79 MG/DL (0.55-1.30); GLOMERULAR FILTRATION RATE > 60.0 (>32); GLUCOSE, FASTING 88 MG/DL (74-106); HDL CHOLESTEROL 63.2 MG/DL (>40); LDL CHOLESTEROL 62.2 MG/DL (<100); NON-HDL-C 74.8 MG/DL; POTASSIUM SERUM 4.5 MMOL/L (3.5-5.1); SODIUM LEVEL 141 MMOL/L (136-145); THYROID STIMULATING HORMONE 6.083 uIU/ML (0.55-4.78); TOTAL PROTEIN 6.6 G/DL (5.7-8.2); TRIGLYCERIDES LEVEL 63 MG/DL (<150)
== END ==
LOC: M SFHCCLAY 07:27
PROVIDERS: ATTEND Family Medicine
DX: M46.46 Discitis, unspecified, lumbar region (principal); E03.9 Hypothyroidism, unspecified; E78.5 Hyperlipidemia, unspecified

== ENCOUNTER → 2023-01-22 | Outpatient (CLI) | payer MEDICARE | LOC: M CLY 14:14 | PROVIDERS: ATTEND Family Medicine | DX: Z53.9 Procedure and treatment not carried out, unspecified reason (principal) ==

== ENCOUNTER → 2023-01-23 | Outpatient (CLI) | payer MEDICARE | LOC: M CLY 09:52 | PROVIDERS: ATTEND Family Medicine | DX: M70.50 Other bursitis of knee, unspecified knee (principal) ==

== ENCOUNTER → 2023-01-23 | Outpatient (CLI) | payer MEDICARE | LOC: M CLY 09:48 | PROVIDERS: ATTEND Family Medicine | DX: Z53.9 Procedure and treatment not carried out, unspecified reason (principal) ==

== ENCOUNTER → 2023-11-23 | Outpatient (CLI) | payer MEDICARE ==
[~2023-11-23] MED LIST changes: +ONDA-282 PO; -ONDA4TAB6 PO
== END ==
LOC: M WHC 08:10
PROVIDERS: ATTEND Family Medicine
DX: Z12.31 Encounter for screening mammogram for malignant neoplasm of breast (principal)

== ENCOUNTER → 2023-12-08 | Outpatient (REF) | payer MEDICARE ==
[2023-12-08 12:33] LABS: HEMATOCRIT 45.2 % (36.0-47.0); HEMOGLOBIN 15.4 g/dl (12.0-15.5); MEAN CORPUSCULAR HGB CONC 34.1 g/dl (32.0-36.5); MEAN CORPUSCULAR VOLUME 90.9 fl (80.0-96.0); PLATELET COUNT, AUTOMATED 170 10^3/uL (150-450); RED BLOOD COUNT 4.97 10^6/uL (4.00-5.40); WHITE BLOOD COUNT 7.4 10^3/uL (4.0-10.0)
[2023-12-08 13:06] LABS: ALBUMIN 4.3 G/DL (3.2-5.2); ALKALINE PHOSPHATASE 64 U/L (46-116); ALT/SGPT 32 U/L (7.0-40); AST/SGOT 23 U/L (<34); BILIRUBIN,TOTAL 0.5 MG/DL (0.3-1.2); BLOOD UREA NITROGEN 19 MG/DL (9-23); CALCIUM LEVEL 9.4 MG/DL (8.3-10.6); CARBON DIOXIDE LEVEL 30 MMOL/L (20-31); CHLORIDE LEVEL 105 MMOL/L (98-107); CREATININE FOR GFR 0.77 MG/DL (0.55-1.30); GLOMERULAR FILTRATION RATE > 60.0 (>32); GLUCOSE, FASTING 87 MG/DL (74-106); POTASSIUM SERUM 4.2 MMOL/L (3.5-5.1); SODIUM LEVEL 139 MMOL/L (136-145); TOTAL PROTEIN 7.1 G/DL (5.7-8.2)
[2023-12-08 13:07] LABS: FREE T3 3.3 PG/ML (2.3-4.2); FREE T4 1.04 NG/DL (0.89-1.76); THYROID STIMULATING HORMONE 5.601 uIU/ML (0.55-4.78)
== END ==
LOC: M SFHCCLAY 07:21
PROVIDERS: ATTEND Family Medicine
DX: E03.8 Other specified hypothyroidism (principal)

== ENCOUNTER → 2024-01-27 | Outpatient (REF) | payer MEDICARE | LOC: M SFHCCLAY 16:19 | PROVIDERS: ATTEND Family Medicine | DX: N39.0 Urinary tract infection, site not specified (principal) ==

== ENCOUNTER → 2024-02-03 | Outpatient (REF) | payer MEDICARE ==
[2024-02-03 18:13] LABS: APPEARANCE, URINE CLEAR (CLEAR); BACTERIA, URINE AUTO 1+ (NEGATIVE); BILIRUBIN, URINE AUTO NEGATIVE (NEGATIVE); BLOOD, URINE BLOOD 1+ (NEGATIVE); COLOR, URINE YELLOW (YELLOW); GLUCOSE, URINE (UA) AUTO NEGATIVE (NEGATIVE); KETONE, URINE AUTO NEGATIVE (NEGATIVE); LEUKOCYTE ESTERASE, URINE AUTO NEGATIVE (NEGATIVE); NITRITE, URINE AUTO NEGATIVE (NEGATIVE); PROTEIN, URINE AUTO 1+ mg/dL (NEGATIVE); RBC, URINE AUTO 0 /HPF (0-3); SPECIFIC GRAVITY URINE AUTO 1.015 (1.002-1.035); SQUAMOUS EPITHELIAL CELL UR AU 1 /HPF (0-6); UROBILINOGEN, URINE AUTO 0.2 mg/dL (0.0-2.0); WBC, URINE AUTO 1 /HPF (0-3)
== END ==
LOC: M SFHCCLAY 12:12
PROVIDERS: ATTEND Family Medicine
DX: R30.0 Dysuria (principal)